=== PATIENT | male | born 1960 | race Caucasian/White ===

== ENCOUNTER 2021-04-29 01:23 | Emergency (ER) | payer BC, OTHER ==
--- NOTE | 2021-04-29 01:38 | ED Physician Documentation ---
PD HPI NVD - Stated complaint Stated Complaint: VOMITING - Chief complaint Chief Complaint: Abd Pain - History obtained from History obtained from: Patient - History of Present Illness Timing - onset: Enter time (17:00), Today Timing - details: Abrupt onset Pain level max: 2 (cramping abdominal pain) Pain level now: 0 Associated symptoms: Abdominal pain (episodic cramping). No: Fever Contributing factors: No: Recent antibiotics, Alcohol use, Anticoagulated, Diabetes Improved by: Other (no ameliorating factors) Worsened by: Other (no exacerbating factors) Similar symptoms before: Has not had sx before Recently seen: Not recently seen - Additonal information Additional information: c/o rapid onset of nausea, vomiting, and diarrhea since 5 PM associated with episodic abdominal cramping. He says his took his temperature and it was normal, and she also performed an at-home COVID test and result was negative. Review of Systems Constitutional: reports: Reviewed and negative Cardiac: reports: Reviewed and negative Respiratory: reports: Reviewed and negative GI: reports: Abdominal Pain, Nausea, Vomiting, Diarrhea. denies: Abdominal Swelling, Constipation, Hematemesis, Bloody / black stool : denies: Dysuria, Frequency Skin: denies: Rash Musculoskeletal: reports: Reviewed and negative PD PAST MEDICAL HISTORY - Past Medical History Past Medical History: No - Past Surgical History Past Surgical History: No - Present Medications Home Medications: Ambulatory Orders Medication Instructions Recorded Confirmed Diphenoxylate/Atropine [Lomotil] 1 each PO QID PRN #10 tablet 04/29/21 Ondansetron Odt [Zofran] 4 mg TL Q6H PRN #10 tablet 04/29/21 - Allergies Allergies/Adverse Reactions: Allergies Allergy/AdvReac Type Severity Reaction Status Date / Time No Known Drug Allergies Allergy Verified 04/29/21 01:33 - Living Situation Living Situation: reports: With spouse/s.o. Living Arrangement: reports: At home PD ED PE NORMAL - Vitals Vital signs reviewed: Yes - General General: Alert and oriented X 3, No acute distress, Well developed/nourished - HEENT HEENT: Other (dry mucous membranes) - Neck Neck: Supple, no meningeal sign - Cardiac Cardiac: No murmur, No gallop, No rub - Respiratory Respiratory: No respiratory distress, Clear bilaterally - Abdomen Abdomen: Normal bowel sounds, Soft, Non tender, Non distended, No organomegaly - Back Back: No CVA TTP - Derm Derm: Normal color, Warm and dry - Extremities Extremities: No edema PD ED PE EXPANDED - Cardiac Cardiac: Tachy, Regular Rhythm Results - Vitals Vitals: Vital Signs - 24 hr 04/29/21 04/29/21 04/29/21 01:25 01:33 02:13 Temperature 36.0 C L Heart Rate 104 H 90 80 Respiratory 20 24 16 Rate Blood Pressure 123/79 122/84 H 134/82 H O2 Saturation 96 100 97 Oxygen O2 Source Room air - Labs Labs: Laboratory Tests 04/29/21 04/29/21 01:43 01:43 WBC 16.9 H RBC 4.81 Hgb 14.7 Hct 44.4 MCV 92.3 MCH 30.6 MCHC 33.1 RDW 13.3 Plt Count 298 MPV 8.8 Neut # (Auto) 15.7 H Lymph # (Auto) 0.4 L [place] # (Auto) 0.6 Eos # (Auto) 0.0 Baso # (Auto) 0.0 Absolute Nucleated RBC 0.00 Nucleated RBC % 0.0 Sodium 139 Potassium 4.2 Chloride 102 Carbon Dioxide 22 Anion Gap 15.0 H BUN 21 H Creatinine 1.1 Estimated GFR (MDRD) 68 L Glucose 187 H Calcium 9.2 Total Bilirubin 1.1 H AST 23 ALT 28 Alkaline Phosphatase 65 Total Protein 8.0 Albumin 4.9 Globulin 3.1 Albumin/Globulin Ratio 1.6 Lipase 22 PD MEDICAL DECISION MAKING - ED course Complexity details: reviewed results, re-evaluated patient, considered differential, d/w patient ED course: rapid onset n/v/d 5 PM today. He has no tenderness on abdominal exam nor on subsequent serial abdominal exams. He denies blood in stool /vomitus. He is given 1 liter NS IV along with 4mg IV zofran and PO lomotil. On reevaluation, he reports feeling much better. On reevaluation, he has moist mucous membranes. Results reviewed with patient; mild leukocytosis noted as well as mildly elevated BUN with normal creatinine (s/o dehydration). Given lack of abdominal tenderness and no alarming findings on blood tests, imaging not performed at this time. In discussing return precautions, I advised him to have a low threshold for returning, particularly if he develops fever, blood in stool or vomitus, or abdominal pain and/or tenderness. Departure - Departure Disposition: 01 Home, Self Care Clinical Impression: Gastroenteritis Condition: Good Instructions: ED Diet Vomiting Diarrhea, ED Vomiting Diarrhea Nonspecific Ad Prescriptions: Diphenoxylate/Atropine [Lomotil] 1 each PO QID PRN #10 tablet PRN Reason: Diarrhea Ondansetron Odt [Zofran] 4 mg TL Q6H PRN #10 tablet PRN Reason: Nausea / Vomiting Comments: The cause of your symptoms is not clear at this time. Your white blood cell count is mildly elevated and your kidney tests show mild abnormalities that would suggest some degree of dehydration. You were given a liter of saline intravenously in the emergency department. You should follow up with your primary care provider, as they might want to repeat testing such as the kidney tests. I suspect you have a viral gastroenteritis, which typically takes a few days to run its course. If you worsen in any way, please return to the emergency department, particularly for fever over 100.4, abdominal pain, blood in vomitus or stool. Prescriptions for antinausea medication (ondansetron) and anti-diarrheal medication (lomotil) have been electronically submitted to [facility] in [place]. Forms: Activity restrictions
[2021-04-29 01:47] LABS: BASOPHILS % (AUTO) 0.2 %; HCT - HEMATOCRIT 44.4 % (42.0-52.0); HGB - HEMOGLOBIN 14.7 g/dL (14.0-18.0); LYMPHOCYTES # (AUTO) 0.4 10^3/uL (1.5-3.5); LYMPHOCYTES % (AUTO) 2.4 %; MEAN CORPUSCULAR HEMOGLOBIN 30.6 pg (27.0-31.0); MEAN CORPUSCULAR HGB CONC 33.1 g/dL (32.0-36.0); MEAN CORPUSCULAR VOLUME 92.3 fL (80.0-94.0); MEAN PLATELET VOLUME 8.8 fL (7.4-11.4); MONOCYTES # (AUTO) 0.6 10^3/uL (0.0-1.0); MONOCYTES % (AUTO) 3.7 %; NEUTROPHILS # (AUTO) 15.7 10^3/uL (1.5-6.6); PLT - PLATELET COUNT 298 10^3/uL (130-450); RED BLOOD COUNT 4.81 10^6/uL (4.70-6.10); RED CELL DISTRIBUTION WIDTH 13.3 % (12.0-15.0); WHITE BLOOD COUNT 16.9 x10^3/uL (4.8-10.8)
[2021-04-29] MEDS ORDERED: DIPHENOX/ATROPINE 2.5/0.025 MG TABLET PO STA (01:54)
[2021-04-29] MEDS ORDERED: SODIUM CHLORIDE 0.9% 1,000 ML IV STA ×2 (01:54→02:34)
[2021-04-29] MEDS ORDERED: ONDANSETRON 4 MG/2 ML VIAL IVP STA (01:54)
[2021-04-29 02:01] LABS: ALBUMIN 4.9 g/dL (3.2-5.5); ALBUMIN/GLOBULIN RATIO 1.6 (1.0-2.2); BILIRUBIN,TOTAL 1.1 mg/dL (0.2-1.0); CALCIUM 9.2 mg/dL (8.5-10.3); CREATININE 1.1 mg/dL (0.6-1.2); POTASSIUM 4.2 mmol/L (3.5-5.0)
[2021-04-29 03:15] VITALS: BP 130/72
== END 2021-04-29 03:15 | disposition home or self-care (01) ==
LOC: ED 01:23
DX: K52.9 Noninfective gastroenteritis and colitis, unspecified (principal)
CPT/HCPCS: 36415; 80053; 83690; 85025; 96361; 96374; 99283; 99284; A9270

== ENCOUNTER 2023-05-21 22:51 | Emergency (ER) | payer BC, OTHER ==
[2023-05-21 23:07] VITALS: BP 138/89; O2SAT 96
[2023-05-21] MEDS: HYDROCORTISONE 1% OINTMENT 28 GM TUBE TOP STA (23:44)
--- NOTE | 2023-05-21 23:59 | ED Physician Documentation ---
PD HPI SKIN - Stated complaint Stated Complaint: BILATERAL LEG PX/RASHES - Chief complaint Chief Complaint: Allergic Rx - History obtained from History obtained from: Patient - Additional information Additional information: 63yM with allergy to shrimp (but denies recent exposure) p/w BL leg rash that is mildly burning and present since last night. denies fevers, allergen exposure. not really itchy . PD PAST MEDICAL HISTORY - Past Medical History Past Medical History: No - Past Surgical History Past Surgical History: No - Allergies Allergies/Adverse Reactions: Allergies Allergy/AdvReac Type Severity Reaction Status Date / Time shell fish Allergy Mild Rash Uncoded 05/21/23 23:06 - Social History Does the pt smoke?: No Smoking Status: Never smoker Does the pt drink ETOH?: Yes Does the pt have substance abuse?: No - POLST Patient has POLST: No PD ED PE NORMAL - Vitals Vital signs reviewed: Yes - General General: Alert and oriented X 3, No acute distress, Well developed/nourished - HEENT HEENT: Atraumatic, PERRL, EOMI - Derm Derm: Normal color, Warm and dry, Other (blanching raised rash to BL anterior legs.) - Extremities Extremities: Other (CSM intact BL LE) Results - Vitals Vitals: Vital Signs - 24 hr 05/21/23 22:59 Temperature 36.5 C Heart Rate 93 Respiratory 19 Rate Blood Pressure 138/89 H O2 Saturation 96 Oxygen O2 Source Room air PD Medical Decision Making - ED course ED course: 63yM presents to the ED with BL rash to legs, likely local reaction. advised hydrocortisone cream and benadryl as needed. return precautions given. f/u pcp. Departure - Departure Disposition: 01 Home, Self Care Clinical Impression: Skin rash Condition: Stable Instructions: ED Allergic Reaction Local Other Comments: You were seen in the emergency department for Rash that should respond well to hydrocortisone cream. For tonight you can take Benadryl (Diphenhydramine) 50 mg orally. Please follow-up with your primary care provider and return to the emergency department if you have any new or worsening symptoms or other concerns.
== END 2023-05-21 23:58 | disposition home or self-care (01) ==
LOC: ED 22:51
DX: R21 Rash and other nonspecific skin eruption (principal)
CPT/HCPCS: 99282; 99283